=== PATIENT | male | born 1965 | race Hispanic/Latino ===

== ENCOUNTER 2018-07-17 04:54 | Emergency (ER) | payer OTHER ==
[~2018-07-17] VITALS: Ht 167.6 cm; Wt 138.0 kg
[~2018-07-17 04:54] MED LIST: ACYCLOVIR400 MG PO; DELTASONE20 MG PO; LISINOPRIL10 MG PO; PHENTERMINE37.5 MG PO
[2018-07-17] MEDS ORDERED: CEPHALEXIN500 M1 PO (05:40)
[2018-07-17] MEDS ORDERED: BACTRIM DS1 TAB PO (05:40)
[2018-07-17 05:53] VITALS: BP 159/107
== END 2018-07-17 06:00 | disposition home or self-care (01) | DRG 603 ==
LOC: ED 04:54
PROC: 0H90XZZ Drainage of Scalp Skin, External Approach (ICD-10-PCS; principal; 2018-07-17)
DX: L01.00 Impetigo, unspecified (principal); E11.9 Type 2 diabetes mellitus without complications

== ENCOUNTER 2020-05-11 11:49 | Emergency (ER) | payer OTHER ==
[~2020-05-11] VITALS: Ht 167.6 cm; Wt 125.9 kg
[~2020-05-11 11:49] MED LIST changes: +BACTRIM DS1 TAB PO; +CEPHALEXIN500 M1 PO
[2020-05-11 12:30] LABS: HEMATOCRIT 48.4 % (39.0-50.0); HEMOGLOBIN 15.7 g/dl (14.0-18.0); IMMATURE GRANULOCYTES 0.8 % (0.0-5.0); MEAN CELL VOLUME 87.5 fL CALC (80.0-100.0); MEAN CORPUSCULAR HGB 28.4 pG CALC (26.0-32.0); MEAN CORPUSCULAR HGB CONC 32.4 g/dL CAL (32.0-36.0); NEUT# 4.61 thou/uL (1.82-7.42); RED BLOOD COUNT 5.53 mill/uL (4.70-6.10); RED CELL DISTRI WIDTH 13.8 % (11.5-15.5)
[2020-05-11 12:50] LABS: ALBUMIN 4.2 g/dL (3.2-5.0); ALKALINE PHOSPHATASE 79 u/l (38-126); ANION GAP 13 (6-22 (CALC)); BILIRUBIN, TOTAL 0.8 mg/dL (0.0-1.4); BUN 12 mg/dL (9-20); BUN/CREATININE RATIO 19 (12-20 (CALC)); CARBON DIOXIDE 29 mmol/l (22-30); CHLORIDE 98 mmol/l (95-108); CREATININE 0.6 mg/dL (0.7-1.3); GFR > 60 ML/MIN (>=60 (CALC)); GFR FOR AFR.AMER. > 60 ML/MIN (>=60 (CALC)); POTASSIUM 4.2 mmol/l (3.5-5.1); SGOT/AST 32 u/l (17-59); SODIUM 135 mmol/l (137-146); TOTAL PROTEIN 8.5 g/dL (6.3-8.2)
[2020-05-11] MEDS ORDERED: ULTRAM50 MG PO (14:08)
[2020-05-11 14:12] VITALS: BP 172/80
== END 2020-05-11 14:21 | disposition home or self-care (01) | DRG 103 ==
LOC: ED 11:49
DX: R51.9 Headache, unspecified (principal); E11.9 Type 2 diabetes mellitus without complications; I10 Essential (primary) hypertension; Z86.16 Personal history of COVID-19

== ENCOUNTER 2024-07-05 16:16 | Emergency (ER) | payer OTHER ==
[~2024-07-05] VITALS: Ht 167.6 cm; Wt 128.0 kg
[~2024-07-05 16:16] MED LIST changes: +ASPIRIN81 MG PO; +GLIMEPIRIDE2 MG PO; +METFORMIN HCL500 M1 PO; +ULTRAM50 MG PO
[2024-07-05 16:31] VITALS: BP 174/102
[2024-07-05 16:45] VITALS: BP 153/95
[2024-07-05] MEDS ORDERED: methylPREDNISolone SODIUM SUCC 125 MG/2 ML SDV IM ONE (16:50)
[2024-07-05] MEDS ORDERED: KETOROLAC TROMETHAMINE 30 MG/ML SDV IM ONE (16:50)
[2024-07-05] MEDS ORDERED: METHOCARBAMOL500 MG PO (18:05)
[2024-07-05 18:16] VITALS: BP 153/95
== END 2024-07-05 18:17 | disposition home or self-care (01) | DRG 552 ==
LOC: ED 16:16
DX: M43.6 Torticollis (principal); M25.512 Pain in left shoulder; I10 Essential (primary) hypertension; E11.9 Type 2 diabetes mellitus without complications; Z79.84 Long term (current) use of oral hypoglycemic drugs